=== PATIENT | female | born 1985 | race Caucasian/White ===

== ENCOUNTER → 2018-10-06 | Outpatient (CLI) | payer SELFPAY ==
[~2018-10-06] MED LIST: AMOX500 PO; CEPH500 PO; Effexor Xr150 MG PO; FLUC150A PO; HYDACE5 PO; RXCEPH500 PO; RXHYDACE PO; VENL150ER PO
[2018-10-06 09:22] LABS: BASOPHILS ABSOLUTE AUTO 0.04 K/mm3 (0.00-0.23); BASOPHILS PERCENT AUTO 1 % (0-2); EOSINOPHILS ABSOLUTE AUTO 0.05 K/mm3 (0.00-0.68); EOSINOPHILS PERCENT AUTO 1 % (0-6); Hematocrit 38.7 % (33.0-51.0); Hemoglobin 13.2 g/dL (11.5-16.0); IMMATURE GRAN ABSOLUTE AUTO 0.02 K/mm3 (0.00-0.10); IMMATURE GRAN PERCENT AUTO 0 % (0-1); LYMPHOCYTES ABSOLUTE AUTO 1.12 K/mm3 (0.84-5.20); LYMPHOCYTES PERCENT AUTO 17 % (21-46); MONOCYTES ABSOLUTE AUTO 0.61 K/mm3 (0.16-1.47); MONOCYTES PERCENT AUTO 9 % (4-13); Mean Corpuscular HGB 28.4 pg (26.0-34.0); Mean Corpuscular HGB Conc 34.1 g/dL (31.5-36.5); Mean Corpuscular Volume 83 fL (80-100); Mean Platelet Volume 10.1 fL (9.1-12.4); NEUTROPHILS ABSOLUTE AUTO 4.84 K/mm3 (1.96-9.15); NEUTROPHILS PERCENT AUTO 73 % (41-73); Platelet Count 239 K/mm3 (150-400); RDW Coefficient Variation 13.4 % (11.7-14.2); RDW Standard Deviation 40.7 fL (35.1-46.3); Red Blood Cell Count 4.64 M/mm3 (3.80-5.20); White Blood Cell Count 6.68 K/mm3 (4.00-11.30)
[2018-10-06 09:26] LABS: Anion Gap 13 mmol/L (6-16); Blood Urea Nitrogen 7 mg/dL (8-24); Bun/Creatinine Ratio 11.1 (12.0-20.0); CO2, Blood 21 mmol/L (21-32); Chloride, Blood 104 mmol/L (98-108); Creatinine, Blood 0.63 mg/dL (0.40-1.00); Glomerular Filtration Rate >60 (60-); Glucose, Blood 83 mg/dL (70-99); Potassium, Blood 3.7 mmol/L (3.5-5.5); Sodium, Blood 138 mmol/L (136-145)
== END ==
LOC: LAB EV 09:17 → LAB SHORT 09:17
PROVIDERS: Physician Assistant
DX: E86.0 Dehydration (principal)
CPT/HCPCS: 80048; 85025

== ENCOUNTER 2019-04-27 17:01 | Inpatient (IN) | payer OTHER ==
[~2019-04-27] VITALS: Ht 162.6 cm; Wt 121.3 kg
[2019-04-27] MEDS ORDERED: PRENATAL TABLE1 EAC2 (18:14)
[2019-04-27 18:24] LABS: BASOPHILS ABSOLUTE AUTO 0.03 K/mm3 (0.00-0.23); BASOPHILS PERCENT AUTO 0 % (0-2); EOSINOPHILS ABSOLUTE AUTO 0.03 K/mm3 (0.00-0.68); EOSINOPHILS PERCENT AUTO 0 % (0-6); Hematocrit 42.7 % (33.0-51.0); Hemoglobin 14.3 g/dL (11.5-16.0); IMMATURE GRAN ABSOLUTE AUTO 0.02 K/mm3 (0.00-0.10); IMMATURE GRAN PERCENT AUTO 0 % (0-1); LYMPHOCYTES PERCENT AUTO 18 % (21-46); MONOCYTES ABSOLUTE AUTO 0.64 K/mm3 (0.16-1.47); MONOCYTES PERCENT AUTO 8 % (4-13); Mean Corpuscular HGB 27.9 pg (26.0-34.0); Mean Corpuscular HGB Conc 33.5 g/dL (31.5-36.5); Mean Corpuscular Volume 83 fL (80-100); NEUTROPHILS ABSOLUTE AUTO 5.67 K/mm3 (1.96-9.15); NEUTROPHILS PERCENT AUTO 73 % (41-73); Platelet Count 258 K/mm3 (150-400); RDW Coefficient Variation 15.4 % (11.7-14.2); RDW Standard Deviation 46.3 fL (35.1-46.3); Red Blood Cell Count 5.13 M/mm3 (3.80-5.20); White Blood Cell Count 7.79 K/mm3 (4.00-11.30)
[2019-04-27 18:35] LABS: Alanine Aminotransfer (ALT/SGP 18 U/L (12-78); Albumin, Blood 2.8 g/dL (3.4-5.0); Albumin/Globulin Ratio 0.7 (0.8-1.8); Alk Phos 157 U/L (50-136); Anion Gap 8 mmol/L (6-16); Aspartate Aminotrans (AST/SGOT 22 U/L (12-37); Bilirubin, Total 0.1 mg/dL (0.1-1.0); Blood Urea Nitrogen 9 mg/dL (8-24); CO2, Blood 19 mmol/L (21-32); Calcium, Blood 8.8 mg/dL (8.5-10.1); Chloride, Blood 107 mmol/L (98-108); Creatinine, Blood 0.56 mg/dL (0.40-1.00); Globulin, Blood 4.3 g/dL (2.2-4.0); Glomerular Filtration Rate >60 (60-); Glucose, Blood 88 mg/dL (70-99); Potassium, Blood 4.5 mmol/L (3.5-5.5); Sodium, Blood 134 mmol/L (136-145); Total Protein, Blood 7.1 g/dL (6.4-8.2)
[2019-04-28 21:33] LABS: PCO2 Cord - Arterial 53.1 mmHg (40-50); PO2 Cord - Arterial < 13 mmHg (16-20); pH Cord - Arterial 7.29 (7.28-7.35)
[2019-04-28 21:35] LABS: PCO2 Cord - Venous 43.4 mmHg (40-50); PO2 Cord - Venous 19.2 mmHg (28-32); pH Umbilical Cord - Venous 7.35 (7.26-7.35)
--- NOTE | 2019-04-29 03:00 | NUR ---
PT COMPLAINS OF GENERALIZED HEADACHE RATED AT 2/10 PAIN. DENIES VISUAL DISTURBANCES, NO CLONUS, 2+ DTRS
[2019-04-29 06:00] LABS: BASOPHILS ABSOLUTE AUTO 0.01 K/mm3 (0.00-0.23); BASOPHILS PERCENT AUTO 0 % (0-2); EOSINOPHILS PERCENT AUTO 0 % (0-6); Hematocrit 38.7 % (33.0-51.0); Hemoglobin 12.7 g/dL (11.5-16.0); IMMATURE GRAN ABSOLUTE AUTO 0.05 K/mm3 (0.00-0.10); IMMATURE GRAN PERCENT AUTO 0 % (0-1); LYMPHOCYTES ABSOLUTE AUTO 0.53 K/mm3 (0.84-5.20); LYMPHOCYTES PERCENT AUTO 4 % (21-46); MONOCYTES ABSOLUTE AUTO 0.65 K/mm3 (0.16-1.47); MONOCYTES PERCENT AUTO 4 % (4-13); Mean Corpuscular HGB 27.9 pg (26.0-34.0); Mean Corpuscular HGB Conc 32.8 g/dL (31.5-36.5); Mean Corpuscular Volume 85 fL (80-100); NEUTROPHILS ABSOLUTE AUTO 13.57 K/mm3 (1.96-9.15); NEUTROPHILS PERCENT AUTO 92 % (41-73); Platelet Count 238 K/mm3 (150-400); RDW Coefficient Variation 15.6 % (11.7-14.2); RDW Standard Deviation 48.2 fL (35.1-46.3); Red Blood Cell Count 4.55 M/mm3 (3.80-5.20); White Blood Cell Count 14.81 K/mm3 (4.00-11.30)
--- NOTE | 2019-04-29 20:21 | NUR ---
ALL TRASH AND DIRTY LINEN REMOVED FROM ROOM, FRESH ICE WATER GIVEN.
--- NOTE | 2019-04-30 09:10 | NUR ---
RN ROUNDED TO HELP WITH BRF. MOM REPORT NB HAS BRF WITHIN THE LAST 1 HOUR, STATES SHE FEELS THAT BRF IS GOING WELL. RN INSTRUCTED PT IN BOOKLET AND BROCHURE. INSTRUCTED IN CHANGES DURING THE FIRST WEEK WITH AND NB, PT VERBALIZES UNDERSTANDING, DENIES ANY FURTHER QUESTIONS OR CONCERNS.
[2019-04-30 12:28] LABS: BASOPHILS ABSOLUTE AUTO 0.04 K/mm3 (0.00-0.23); BASOPHILS PERCENT AUTO 0 % (0-2); EOSINOPHILS ABSOLUTE AUTO 0.02 K/mm3 (0.00-0.68); EOSINOPHILS PERCENT AUTO 0 % (0-6); Hematocrit 38.9 % (33.0-51.0); Hemoglobin 12.5 g/dL (11.5-16.0); IMMATURE GRAN ABSOLUTE AUTO 0.03 K/mm3 (0.00-0.10); IMMATURE GRAN PERCENT AUTO 0 % (0-1); LYMPHOCYTES ABSOLUTE AUTO 0.99 K/mm3 (0.84-5.20); LYMPHOCYTES PERCENT AUTO 10 % (21-46); MONOCYTES ABSOLUTE AUTO 0.59 K/mm3 (0.16-1.47); MONOCYTES PERCENT AUTO 6 % (4-13); Mean Corpuscular HGB 27.8 pg (26.0-34.0); Mean Corpuscular HGB Conc 32.1 g/dL (31.5-36.5); Mean Corpuscular Volume 87 fL (80-100); Mean Platelet Volume 10.1 fL (9.1-12.4); NEUTROPHILS ABSOLUTE AUTO 8.69 K/mm3 (1.96-9.15); NEUTROPHILS PERCENT AUTO 84 % (41-73); Platelet Count 204 K/mm3 (150-400); RDW Standard Deviation 50.8 fL (35.1-46.3); Red Blood Cell Count 4.49 M/mm3 (3.80-5.20); White Blood Cell Count 10.36 K/mm3 (4.00-11.30)
[2019-04-30 13:20] LABS: Alanine Aminotransfer (ALT/SGP 14 U/L (12-78); Albumin, Blood 2.4 g/dL (3.4-5.0); Albumin/Globulin Ratio 0.6 (0.8-1.8); Alk Phos 116 U/L (50-136); Anion Gap 5 mmol/L (6-16); Aspartate Aminotrans (AST/SGOT 15 U/L (12-37); Bilirubin, Total 0.2 mg/dL (0.1-1.0); Blood Urea Nitrogen 6 mg/dL (8-24); Bun/Creatinine Ratio 10.8 (12.0-20.0); CO2, Blood 25 mmol/L (21-32); Calcium, Blood 8.7 mg/dL (8.5-10.1); Chloride, Blood 106 mmol/L (98-108); Creatinine, Blood 0.56 mg/dL (0.40-1.00); Globulin, Blood 3.8 g/dL (2.2-4.0); Glomerular Filtration Rate >60 (60-); Glucose, Blood 124 mg/dL (70-99); Potassium, Blood 4.2 mmol/L (3.5-5.5); Sodium, Blood 136 mmol/L (136-145); Total Protein, Blood 6.2 g/dL (6.4-8.2)
--- NOTE | 2019-05-01 06:51 | NUR ---
SHIFT SUMMARY: PT ASSESSMENTS REMAIN UNCHANGED ON MAGNESIUM THROUGHOUT SHIFT. PT STILL C/O GENERALIZED BLANC WITH MILD TINGLING IN FINGERS. DTR AND CLONUS REMAIN UNCHANGED FROM INITIAL ASSESSMENT. PT HAD A COUPLE BP'S SYSTOLIC 160-180'S AND DIASTOLIC IN THE 90'S. Jolie DOVE WAS ON THE UNIT AND GAVE ORDERS FOR IV LABETOLOL AND TO RECHECK BP [id number] THEN IF STABLE, BP [id number], THEN BACK TO ROUTINE VS MONITORING. PROVIDER ALSO INCREASED PO LABETOLOL ORDER TO 300TID AND THAT DOSE WAS STARTED AT 0000. 0400 BP WAS 150'S/80'S.
--- NOTE | 2019-05-01 08:31 | NUR ---
PATIENT STATES HEADACHE IS MUCH WORSE SITTING UP 08/24 AND 05/25 WHEN LAYING DOWN WILL UPDATE DOCTOR, B/P DECREASING SINCE MEDICATED
--- NOTE | 2019-05-01 09:39 | NUR ---
CALLED FOR ANESTHESIA CONSULT TO R/O SPINAL HEADACHE
--- NOTE | 2019-05-01 10:28 | NUR ---
ANESTHESIA (DR. CURRAN) AT BEDSIDE TO DO A NASAL BLOCK WITH LIDOCAINE FOR PT C/O HEADACHE. TIME OUT PERFORMED ALL PARTIES AGREE.
--- NOTE | 2019-05-01 10:28 | NUR ---
05/01/19 1028 Lara Arrieta VERIFICATIONS, AUDITS.
--- NOTE | 2019-05-01 10:39 | NUR ---
Q5 MIN BP ORDER FROM ANESTHESIA DURING NASAL BLOCK PRCEDURE. DR. CURRAN REMAINS AT BEDSIDE. 1043 DR. CURRAN ADMINISTERS ADDITIONAL LIDOCAINE INTRANASALY. BP 165/97. BP ELEVATED DURING PROCEDURE.
--- NOTE | 2019-05-01 10:48 | NUR ---
1048 DR. CURRAN REMAINS AT BEDSIDE, ADJSUTMENT OF Q-TIPS IN BILAT NARES. BP ELEVATED 162/95 A THIS TIME. PT TOLERATES PROCEDURE WELL. PT CALM AND COOPERATIVE, TALKING TO SPOUSE AND STAFF, NO COMPLAINTS OF DISCOMFORT AT THIS TIME. PT IN TREDELENBERGE POSITION THROUGHOUT NASAL BLOCK PROCEDURE.
--- NOTE | 2019-05-01 10:52 | NUR ---
1052 PROCEDURE COMPLETED, DR. CURRAN REMOVES Q-TIPS FROM NARES. PT TOLERATES WELL. PT REPORTS IMPROVEMENT IN HEADACHE PAIN 02/24 AT THIS TIME. PT NOW IN REVERSE TRENDELENBER POSITION. PT BP IS 160/92 AT THIS TIME. IV FLUIDS INCREASED FROM 50ML/HR TO 100ML/HR PER VERBAL ORDER FROM DR. CURRAN 1057 DR. CURRAN LEAVES BEDSIDE.
--- NOTE | 2019-05-01 12:48 | NUR ---
STATES HEADACHE BETTER BUT STILL THERE WITH RE-EVALUATE HEADACHE MAGNESIUM IS OFF
--- NOTE | 2019-05-01 13:25 | NUR ---
headache 03/27 now,
[2019-05-01] MEDS ORDERED: Percocet 5-3251 EACH PO (19:17)
[2019-05-01] MEDS ORDERED: NIFE30ER PO (19:17)
[2019-05-01] MEDS ORDERED: LABE100 PO (19:18)
--- NOTE | 2019-05-01 20:35 | NUR ---
CALL TO [facility] TO UPDATE ON PATIENTS CONTINUED ELEVATED BLOOD PRESSURE. IV LABATALOL 20MG TO BE GIVEN, RECHECK PT BLOOD PRESSURE AT 10 MINUTES IF WITHIN PARAMETERS OF 160 OR LESS SYSTOLIC AND 105 OR LESS DIASTOLIC, RECHECK Q30 FOR ONE HOUR, IF ABOVE RECHECK AGAIN IN 10 MINUTES
--- NOTE | 2019-05-02 09:21 | NUR ---
Jolie DOVE CNM IN TO SEE PT THIS AM. VERBAL ORDER FOR Q 1 HOUR BP CHECKS STARTING AT 0900. AND PARAMETERS TO GIVE IV LABETOLOL IF SYS BP >160 OR GONZALEZ >105. TO ALSO RECHECK BP AFTER 15 MINUTES IF INITIAL READING IS HIGHER THAN GIVEN PARAMETERS.
--- NOTE | 2019-05-02 10:00 | NUR ---
PT SITTING UP FOR 1000 BP READING IS 148/85
[2019-05-02 10:46] LABS: Hematocrit 41.1 % (33.0-51.0); Hemoglobin 13.1 g/dL (11.5-16.0); Mean Corpuscular HGB 27.6 pg (26.0-34.0); Mean Corpuscular HGB Conc 31.9 g/dL (31.5-36.5); Mean Corpuscular Volume 87 fL (80-100); Mean Platelet Volume 10.1 fL (9.1-12.4); Platelet Count 260 K/mm3 (150-400); RDW Coefficient Variation 15.6 % (11.7-14.2); RDW Standard Deviation 49.9 fL (35.1-46.3); Red Blood Cell Count 4.74 M/mm3 (3.80-5.20); White Blood Cell Count 8.94 K/mm3 (4.00-11.30)
--- NOTE | 2019-05-02 10:50 | NUR ---
RN ROUNDED ON PT AND NB. PT REPORTS BRF IS GOING REALLY WELL, MILK IS IN. PT STATES SHE THINKS THAT NB IS HAVING SOME TROUBLE WITH HER LET DOWN, RN INSTRUCT/DEMO UPRIGHT AND LAID BACK POSITIONS TO HELP NB EASILY COORDINATE DURING LET DOWN. PT VERBALIZED UNDERSTANDING AND DENIES ANY FURTHER QUESTIONS OR CONCERNS AT THIS TIME.
[2019-05-02 11:01] LABS: Alanine Aminotransfer (ALT/SGP 75 U/L (12-78); Albumin, Blood 2.6 g/dL (3.4-5.0); Albumin/Globulin Ratio 0.6 (0.8-1.8); Alk Phos 110 U/L (50-136); Anion Gap 8 mmol/L (6-16); Aspartate Aminotrans (AST/SGOT 98 U/L (12-37); Bilirubin, Total 0.3 mg/dL (0.1-1.0); Blood Urea Nitrogen 8 mg/dL (8-24); CO2, Blood 24 mmol/L (21-32); Calcium, Blood 8.7 mg/dL (8.5-10.1); Chloride, Blood 107 mmol/L (98-108); Creatinine, Blood 0.67 mg/dL (0.40-1.00); Globulin, Blood 4.3 g/dL (2.2-4.0); Glomerular Filtration Rate >60 (60-); Glucose, Blood 80 mg/dL (70-99); Potassium, Blood 4.1 mmol/L (3.5-5.5); Sodium, Blood 139 mmol/L (136-145); Total Protein, Blood 6.9 g/dL (6.4-8.2)
--- NOTE | 2019-05-02 12:28 | NUR ---
1225- PROVIDER Jolie DOVE CNM NOTIFIED OF RESULTS FOR LABS DRAWN THIS AM. NOTIFIED OF ELEVATION IN AST AND ALT WELL 1200 BP READING OF 159/81. AND THAT PT HAS QUESTIONS AND WOULD LIKE TO TALK TO THE PROVIDER.
== END 2019-05-02 17:30 | disposition home or self-care (01) | DRG 788 ==
LOC: OBS 17:01 → BC 17:14
PROVIDERS: Obstetrics & Gynecology; ADMIT Advanced Practice Midwife
PROC: 3E0P7VZ Introduction of Hormone into Female Reproductive, Via Natural or Artificial Opening (ICD-10-PCS; 2019-04-27)
PROC: 3E033VJ Introduction of Other Hormone into Peripheral Vein, Percutaneous Approach (ICD-10-PCS; 2019-04-28)
PROC: 10907ZC Drainage of Amniotic Fluid, Therapeutic from Products of Conception, Via Natural or Artificial Opening (ICD-10-PCS; 2019-04-28)
PROC: 3E0R3BZ Introduction of Anesthetic Agent into Spinal Canal, Percutaneous Approach (ICD-10-PCS; 2019-04-28)
PROC: 10H07YZ Insertion of Other Device into Products of Conception, Via Natural or Artificial Opening (ICD-10-PCS; 2019-04-28)
PROC: 10D00Z1 Extraction of Products of Conception, Low, Open Approach (ICD-10-PCS; principal; 2019-04-28 16:45)
DX: O14.94 Unspecified pre-eclampsia, complicating childbirth (principal); O99.824 Streptococcus B carrier state complicating childbirth; O61.0 Failed medical induction of labor; O62.1 Secondary uterine inertia; O77.0 Labor and delivery complicated by meconium in amniotic fluid; Z3A.38 38 weeks gestation of pregnancy; Z37.0 Single live birth; O99.214 Obesity complicating childbirth; O99.342 Other mental disorders complicating pregnancy, second trimester; F41.9 Anxiety disorder, unspecified
CPT/HCPCS: 36415; 51702; 80053; 82803; 85025; 85027; 86850; 86900; 86901; J0290; J0360; J0690; J1100; J1885; J2001; J2370; J2405; J2590; J2704; J2765; J3010; J3475; J7120; Q0163

== ENCOUNTER → 2019-06-28 | Outpatient (CLI) | payer OTHER ==
[~2019-06-28] MED LIST changes: +LABE100 PO; +NIFE30ER PO; +PRENATAL TABLE1 EAC2; +Percocet 5-3251 EACH PO
== END | disposition home or self-care (01) ==
LOC: LAB SHORT 08:07 → LAB EV 08:07
DX: R50.9 Fever, unspecified (principal); Z20.828 Contact with and (suspected) exposure to other viral communicable diseases
CPT/HCPCS: 87077; 87086; 87186; U0003

== ENCOUNTER → 2020-04-01 | Outpatient (CLI) | payer OTHER ==
[2020-04-02 06:10] LABS: HIV SCREEN 4TH GENERATION WRFX Non Reactive (Non Reactive)
== END ==
LOC: LAB SHORT 07:37 → LAB 07:37
PROVIDERS: Family Medicine
DX: Z20.9 Contact with and (suspected) exposure to unspecified communicable disease (principal)
CPT/HCPCS: 86803; 87389

== ENCOUNTER → 2020-04-23 | Outpatient (CLI) | payer OTHER ==
[2020-04-23 17:25] LABS: BASOPHILS ABSOLUTE AUTO 0.09 K/mm3 (0.00-0.23); BASOPHILS PERCENT AUTO 1 % (0-2); EOSINOPHILS ABSOLUTE AUTO 0.43 K/mm3 (0.00-0.68); EOSINOPHILS PERCENT AUTO 5 % (0-6); Hematocrit 42.2 % (33.0-51.0); IMMATURE GRAN ABSOLUTE AUTO 0.02 K/mm3 (0.00-0.10); IMMATURE GRAN PERCENT AUTO 0 % (0-1); LYMPHOCYTES PERCENT AUTO 24 % (21-46); MONOCYTES ABSOLUTE AUTO 0.63 K/mm3 (0.16-1.47); MONOCYTES PERCENT AUTO 8 % (4-13); Mean Corpuscular HGB 28.3 pg (26.0-34.0); Mean Corpuscular HGB Conc 33.2 g/dL (31.5-36.5); Mean Corpuscular Volume 85 fL (80-100); NEUTROPHILS ABSOLUTE AUTO 5.24 K/mm3 (1.96-9.15); NEUTROPHILS PERCENT AUTO 62 % (41-73); Platelet Count 329 K/mm3 (150-400); RDW Standard Deviation 39.8 fL (35.1-46.3); Red Blood Cell Count 4.94 M/mm3 (3.80-5.20); White Blood Cell Count 8.41 K/mm3 (4.00-11.30)
[2020-04-23 17:45] LABS: Alanine Aminotransfer (ALT/SGP 22 U/L (12-78); Albumin, Blood 4.1 g/dL (3.4-5.0); Alk Phos 82 U/L (40-126); Anion Gap 9 mmol/L (6-16); Aspartate Aminotrans (AST/SGOT 17 U/L (12-37); Bilirubin, Total 0.2 mg/dL (0.1-1.0); Blood Urea Nitrogen 14 mg/dL (8-24); Bun/Creatinine Ratio 18.4 (12.0-20.0); CO2, Blood 30 mmol/L (21-32); Calcium, Blood 9.7 mg/dL (8.5-10.1); Chloride, Blood 103 mmol/L (98-108); Creatinine, Blood 0.76 mg/dL (0.40-1.00); Glomerular Filtration Rate >60 (60-); Glucose, Blood 86 mg/dL (70-99); Potassium, Blood 4.3 mmol/L (3.5-5.5); Sodium, Blood 142 mmol/L (136-145); Thyroid Stimulating Hormone 0.951 uIU/mL (0.360-4.800); Total Protein, Blood 8.1 g/dL (6.4-8.2)
== END | disposition home or self-care (01) ==
LOC: PLD 17:21 → LAB SHORT 17:21
PROVIDERS: Nurse Practitioner Family
DX: F41.8 Other specified anxiety disorders (principal)
CPT/HCPCS: 80053; 84443; 85025

== ENCOUNTER → 2021-03-27 | Outpatient (CLI) | payer OTHER | END | disposition home or self-care (01) | LOC: LAB SHORT 09:30 | DX: R30.9 Painful micturition, unspecified (principal) | CPT/HCPCS: 87086 ==

== ENCOUNTER → 2021-10-09 | Outpatient (CLI) | payer BC ==
[2021-10-14 16:10] LABS: HPV 16 Negative (Negative); HPV 18 Negative (Negative); HPV OTHER HR TYPES Negative (Negative)
== END | disposition home or self-care (01) ==
LOC: LAB SHORT 13:44 → LAB 13:44
PROVIDERS: Nurse Practitioner Family
DX: Z01.419 Encounter for gynecological examination (general) (routine) without abnormal findings (principal); L98.9 Disorder of the skin and subcutaneous tissue, unspecified
CPT/HCPCS: 87624; G0123

== ENCOUNTER → 2023-03-15 | Outpatient (CLI) | payer BC ==
[2023-03-16 15:32] LABS: HEPATITIS B SURFACE ANTIBODY 3.48 IU/L
[2023-03-16 15:45] LABS: HEPATITIS B SURFACE ANTIGEN Negative (Negative)
[2023-03-16 16:41] LABS: HIV 1,2 COMBO ANTIGEN/ANTIBODY Negative (Negative)
== END | disposition home or self-care (01) ==
LOC: LAB SHORT 13:31
PROVIDERS: Family Medicine
DX: Z20.9 Contact with and (suspected) exposure to unspecified communicable disease (principal)
CPT/HCPCS: 84460